=== PATIENT | female | born 1945 | race Hispanic/Latino ===

== ENCOUNTER 2017-01-08 10:24 | Outpatient (CLI) | payer MEDICARE ==
--- NOTE | 2017-01-08 15:07 | Mammography Report ---
BILATERAL DIGITAL SCREENING MAMMOGRAM with CAD: 01/08/17 10:24:00 CLINICAL: Routine screening. COMPARISON:03/10/15 FINDINGS: The breasts are predominantly fatty with bilateral retroareolar fibroglandular densities.An irregular right retroareolar mass measures approximately 1.8 cm and requires additional evaluation with ultrasound.No suspicious calcifications. The left breast is negative. IMPRESSION: A suspicious right retroareolar breast mass requiring further workup. BI-RADS CATEGORY: 0 -- Additional Imaging Evaluation Required RECOMMENDATION: Right breast ultrasound. I reviewed the examination with Dr. Ennis and she is going to perform a right breast ultrasound and possibly a right ultrasound-guided needle biopsy on this same day. ACR BI-RADS MAMMOGRAPHIC CODES: 0 = Needs additional imaging evaluation; 1 = Negative; 2 = Benign; 3 = Probably benign; 4 = Suspicious; 5 = Malignant; 6 = Known biopsy-proven malignancy COMMENT: 1. Dense breast tissue, i.e., adenosis, fibrocystic changes, etc., may obscure an underlying neoplasm. 2. Approximately 10% of cancers are not detected with mammography. 3. A negative mammography report should not delay biopsy if a clinically suspicious mass is present. COMMENT: Patient follow-up letters are generated via our [employer] application.
== END 2017-01-08 10:25 | disposition home or self-care (01) ==
LOC: SPVWC 10:24
PROVIDERS: ATTEND Surgery
DX: Z12.31 Encounter for screening mammogram for malignant neoplasm of breast (principal)
CPT/HCPCS: 77067; G0202

== ENCOUNTER 2017-01-09 15:03 | Outpatient (CLI) | payer MEDICARE | END 2017-01-09 15:04 | disposition home or self-care (01) | LOC: LABHHL 15:03 → LAB 15:03 | PROVIDERS: ATTEND Surgery | DX: N63 Unspecified lump in breast (principal) | CPT/HCPCS: 88305; 88361 ==

== ENCOUNTER 2017-01-23 13:10 | Outpatient (CLI) | payer MEDICARE ==
--- NOTE | 2017-01-28 10:09 | Magnetic Resonance Report ---
BILATERAL BREAST MRI WITHOUT AND WITH CONTRAST: 01/23/17 13:10:00 CLINICAL: Newly diagnosed right breast cancer. Status post needle core biopsy of the right breast on 01/09/17 with pathologic diagnosis of invasive ductal carcinoma, [place] grade 3/3. ER/MA negative and her 2 negative. COMPARISON:01/08/17 screening mammogram. TECHNIQUE: Axial 1.0-mm T1 without, axial high resolution 2.0-mm T2 and axial 1.0-mm dynamic Vibrant high-resolution postcontrast T1 fat saturation sequences on a 1.5 Anne-Marie magnet. The examination was performed with an 8 channel dedicated Sentinelle breast coil. Post processing with CAD and subtraction was performed on an [employer] workstation. 20 cc of Multihance was injected without incident for the contrast portion of the exam. Consent was obtained prior to the administration of the contrast. FINDINGS: Right: Minimal background parenchymal enhancement. An irregular enhancing mass at 7 o'clock 3.2 cm from the nipple corresponds to the known cancer. It measures 18.6 x 14.7 x 14.2 mm and demonstrates heterogeneous enhancement with mixed kinetics, 162% peak enhancement and 6% type III washout. A second highly suspicious mass is located at 7 o'clock 5.3 cm from the nipple and measures 24.7 x 10.7 x 10.5 mm. It demonstrates heterogeneous enhancement with mixed kinetics, 201% peak enhancement, 69% type I persistent and 31% type II plateau and 0% type III washout waveforms. No other mass or suspicious enhancement of the right breast. 2 upper-outer intramammary lymph nodes with benign morphology. No suspicious right axillary or right internal mammary lymph nodes. Left: Minimal background parenchymal enhancement. No mass or suspicious enhancement of the left breast. No suspicious left axillary or left internal mammary lymph nodes. IMPRESSION: Known right breast cancer and one additional highly suspicious mass of the right breast. No suspicious lymph nodes. Negative left breast. RIGHT BI-RADS 6 -- Known Cancer LEFT BI-RADS 1 -- Negative
== END 2017-01-23 13:11 | disposition home or self-care (01) ==
LOC: SPVIMAG 13:10
PROVIDERS: ATTEND Surgery
DX: C50.511 Malignant neoplasm of lower-outer quadrant of right female breast (principal)
CPT/HCPCS: 0159T; A9577; C8908; 77059

== ENCOUNTER 2017-02-05 06:32 | Observation (INO) | payer MEDICARE ==
[~2017-02-05 06:32] MED LIST: BACITRACIN IR ONE; NACL P/F VIAL (10 ML) IV ONE; WATER FOR IRRIG STERILE IR ONE
[2017-02-05] MEDS ORDERED: XYLOCAINE MPF 2% ONE (06:36)
[2017-02-05] MEDS ORDERED: DIPRIVAN 10 MG/ML IV ONE (06:44)
[2017-02-05] MEDS ORDERED: ZEMURON IV ONE (06:44)
[2017-02-05] MEDS ORDERED: DILAUDID ONE (06:44)
[2017-02-05] MEDS ORDERED: NEOSTIGMINE ONE (06:44)
[2017-02-05] MEDS ORDERED: ROBINUL ONE (06:44)
[2017-02-05] MEDS ORDERED: NACL BACTERIOSTATIC INFILTRATI ONE (06:50)
[2017-02-05] MEDS ORDERED: ANCEF/STERILE WATER 2 GM/20 ML IV NR (07:00)
--- NOTE | 2017-02-05 07:07 | Anesthesia Day of Surgery ---
Anesthesia Day of Surgery - Day of Surgery Patient Examined: Yes Patient H&P Reviewed: Yes Patient is NPO: Yes Cardiac Clearance: Yes (primary care clearance)
--- NOTE | 2017-02-05 07:09 | Anesthesia Consultation ---
Anesthesia Consult and Med Hx - Airway Anesthetic Teeth Evaluation: Good, Caps ROM Head & Neck: Adequate Mental/Hyoid Distance: Adequate Mallampati Class: Class II Intubation Access Assessment: Probably Good - Pulmonary Exam CTA: Yes - Cardiac Exam Cardiac Exam: RRR - Pre-Operative Health Status ASA Pre-Surgery Classification: ASA2 Proposed Anesthetic Plan: General Nerve Block: PEC 2 BLOCK - Pulmonary Hx Smoking: No Hx Sleep Apnea: No - Central Nervous System Hx Psychiatric Problems: No - Gastrointestinal Hx Gastroesophageal Reflux Disease: Yes (controlled on meds) - Other Systems Hx Cancer: Yes (RIGHT BREAST, DX: 12/2016) - Additional Comments Anesthesia Medical History Comments: Pt NPO after MN. No prior anesthesia complications. Agrees to PEC2 block.
[2017-02-05] MEDS ORDERED: DECADRON ONE (07:54)
[2017-02-05] MEDS ORDERED: PEPCID PO NR (08:00)
[2017-02-05] MEDS ORDERED: TRANSDERM-SCOP TD NR (08:00)
[2017-02-05] MEDS ORDERED: NEURONTIN PO SCH (08:00)
[2017-02-05] MEDS ORDERED: VERSED IV NR (08:00)
[2017-02-05] MEDS ORDERED: NACL 0.9% 1000 ML 1,000 ML IV SCH (08:00)
[2017-02-05] MEDS ORDERED: BACITRACIN ONE ×2 (08:02→09:36)
[2017-02-05] MEDS ORDERED: NACL P/F VIAL (10 ML) 10 ML ONE ×3 (08:03→09:50)
--- NOTE | 2017-02-05 09:04 | Admit Criteria Form ---
Admission Criteria Documentation: AMBULATORY SURGERY EXCEPTION CRITERIA Ambulatory Surgery Exception Criteria ( Place 'X' for any and all applicable criteria): Surgery or procedure performed on ambulatory basis may require inpatient stay for[A] ANY ONE of the following(1)(2)(3)(4)(5)(6)(7)(8)(9): [X] I. A preoperative situation, condition, or finding that warrants inpatient stay as indicated by ANY ONE of the following: [X] a) Inpatient care needed because of severity of a disease or condition rather than the surgery (eg, severe cardiac or respiratory disease, severe infection) (15) (16 ) (17) (18) [] b) Emergent procedure (eg, angioplasty for acute ischemia)(19) [] c) Complex surgical approach or situation as indicated by ANY ONE of the following(3): [] i) Open approach needed instead of usual endoscopic, transcatheter, or other less invasive procedure [] ii) Difficult approach because of previous operation [] iii) Airway monitoring required after open neck procedures(20)(21) [] iv) Large mass requiring unusually extensive dissection [] v) Additional complicating feature requiring inpatient care (eg, drain management)(22(23): [] d) Major surgery in a pt with high anesthetic risk as indicated by ANY ONE of the following (2)(3)(5)(7)(8): [] i) ASA risk class III or higher (severe systemic disease impairing function) [D] [] ii) Advanced age (eg, older than 85 years)(14)(24) [] iii) Symptomatic heart failure(25) [] iv) Symptomatic asthma or COPD(8)(21) [] v) Morbid obesity with hemodynamic or respiratory problems(20)( 21)(26)(27) [] vi) Obstructive sleep apnea(20)(21) [] vii) Former premature infants who are younger than 60 weeks [] viii) High risk for severe postoperative abnormalities (eg, severe postoperative hypocalcemia after parathyroidectomy for severe hyperparathyroidism)(27)( 28) [] ix) Unstable angina(25) [] e) Drug-related risk requiring inpatient stay as indicated by ANY ONE of the following(5)(10)(14)(32)(33) [] i) Procedure requires discontinuing drugs or other therapy (eg , antiarrhythmic medication, antiseizure medication), which necessitates inpatient observation or treatment.(18)(31) [] ii) Major surgery and high risk drug use as indicated by ANY ONE of the following: [] 1) Active abuse of cocaine or similar drug [] 2) Monoamine oxidase inhibitor use [] 3) Other drug identified as posing risk [] f) Inadequate outpatient care situation as indicated by ANY ONE of the following(5)(10)(14)(32)(33) [] i) Patient lives remote from medical facility and procedure has urgent complication potential, and temporary nearby residence cannot be arranged [] ii) Patient will have postprocedure incapacitation and inadequate assistance at home, or alternative level of care cannot be arranged. [] iii) Patient will have long general anesthesia or procedure side effect resolution time, and competent person to stay with patient on first postoperative night at home or alternative level of care cannot be arranged. []iv) Other inadequate outpatient situation that cannot be handled by other means [] II. A perioperative event, condition, or finding that warrants inpatient stay as indicated by ANY ONE of the following (1)(2)(3): [] a) Inadequate physiologic recovery: cardiovascular, respiratory, or hemodynamic status not normal or near preoperative baseline(18) [] b) Hemodynamic instability [] c) Patient not alert with near normal or baseline mental status [] d) Temperature not normal or as expected and not appropriate for outpatient treatment of condition [] e) Ambulatory or appropriate activity level status not yet achieved post procedure [E](34)(35)(36) [] f) Operative site not appropriate (eg, unexpected or excessive drainage or bleeding) [] g) Postoperative effects not resolved or adequately managed (eg, significant pain or vomiting not appropriate for outpatient or next level of care)(10)(12) [] h) Complicating features requiring inpatient care as indicated by ANY ONE of the following(37): [] i) Severe complications of procedure (eg, bowel injury, airway compromise, vascular injury,severe hemorrhage) [] ii) Extensive (eg, dissection far beyond usual scope of procedure ) or prolonged (eg, 120 minutes beyond usual) surgery needed requiring inpatient postoperative care [] iii) Conversion to an open or complex procedure that requires inpatient care (eg, open vs laparoscopic cholecystectomy, abdominal vs vaginal hysterectomy)(38) [] iv) Comorbid condition or test result identified during or post procedure that requires inpatient care (7) [] v) Malignant hyperthermia(30) [] vi) Other complicating feature requiring inpatient care(22)(23) Inpatient stay may be needed until ALL of the following are present (1)(2)(3)(4) (5)(6)(10)(14)(33)(40): []a) Physiologic recovery: cardiovascular, respiratory, and hemodynamic status normal or near preoperative baseline []b) Hemodynamic stability []c) Patient alert, with near normal or baseline mental status []d) Temperature appropriate: patient afebrile or temperature appropriate for outpt treatment of condition []e) Activity level appropriate: ambulatory or appropriate activity level post procedure []f) Operative site appropriate as indicated by ALL of the following: []i) Site dry or with expected drainage []ii) Any blood noted is as expected for procedure. []g) Postoperative effects resolved or managed as indicated by ALL of the following: []i) Pain management appropriate for outpatient (or next level of) care(10) []ii) Minimal nausea and vomiting: if present, successfully treated with oral medication(12) []iii) Headache, dizziness, or drowsiness (if present) are mild. []h) Voiding status acceptable as indicated by ANY ONE of the following: []i) Voiding spontaneously []ii) No voiding but instructions given for follow-up in 6 to 8 hours []iii) Urinary catheter in place, and instructions given for follow-up []i) Complicating features requiring inpatient care manageable at a lower level of care(37) []j) Comorbid conditions manageable at a lower level of care(37) The original [employer] content created by [employer] has been revised. The portions of the content which have been revised are identified through the use of italic text or in bold, and [employer] has neither reviewed nor approved the modified material. All other unmodified content is copyright [employer]. Please see references footnoted in the original [employer] edition 2016 Admission Criteria Met: Yes
[2017-02-05] MEDS ORDERED: NACL P/F VIAL (10 ML) 0 ML ONE (09:39)
[2017-02-05] MEDS ORDERED: ePHEDrine SULFATE ONE (09:50)
[2017-02-05] MEDS ORDERED: WATER FOR IRRIG STERILE IR ONE (09:56)
[2017-02-05] MEDS ORDERED: GARAMYCIN ONE (09:57)
[2017-02-05] MEDS ORDERED: ANCEF ONE (09:57)
[2017-02-05] MEDS ORDERED: PERCOCET 5/325 PO PRN (10:36)
[2017-02-05] MEDS ORDERED: REGLAN PO PRN (10:36)
[2017-02-05] MEDS ORDERED: TYLENOL PO PRN (10:36)
[2017-02-05] MEDS ORDERED: BENADRYL PO PRN (10:36)
[2017-02-05] MEDS ORDERED: SODIUM CHLORIDE FLUSH SYRINGE 10 ML IV PRN (10:36)
[2017-02-05] MEDS ORDERED: ZOFRAN IV PRN (10:36)
[2017-02-05] MEDS ORDERED: MORPHINE IV PRN (10:39)
--- NOTE | 2017-02-05 10:41 | Post Operative Note ---
Pre-op diagnosis: right breast cancer Post-op diagnosis: same Findings: right sided breast cancer Procedure: right breast reconstruction with tissue slasher tender and aceullar dermal matrix Anesthesia: GETA Surgeon: MILY LLOYD Estimated blood loss: minimal Pathology: none Condition: stable Disposition: PACU
[2017-02-05] MEDS ORDERED: BACITRACIN IR ONE (10:58)
[2017-02-05] MEDS ORDERED: NACL P/F VIAL (10 ML) IV ONE (10:58)
[2017-02-05] MEDS ORDERED: ANCEF IV ONE (10:58)
[2017-02-05] MEDS ORDERED: NACL 0.9% IR ONE (10:58)
[2017-02-05] MEDS ORDERED: LACTATED RINGERS 1,000 ML IV SCH (11:00)
--- NOTE | 2017-02-05 11:11 | Operative Report ---
Operative Report Operative Report: Date of procedure: 02/05/2017 Pre-operative diagnosis: Right breast cancer of the subareolar Post-operative diagnosis: Same Procedure name(s): Right total mastectomy with sentinel lymph node biopsy Surgeon: Wandy Ennis M.D. Anesthesia: Gen. Findings: Known right breast cancer of the 7 o'clock position of the subareolar. 2 sentinel lymph nodes identified with negative findings for malignancy on frozen. Right total mastectomy. Complications: None Disposition: Plastic continue with right tissue senior analyst developer placement Indications for operative procedure: This is a 71-year-old lady with newly diagnosed right breast cancer of the 7 o'clock position of the subareolar , IDCA [id number] triple negative. Recommendations are for chemotherapy as well as surgical intervention with right total mastectomy with sentinel lymph node staging. Patient wished to proceed with surgery first and has declined chemotherapy at this time. The above procedure was explained to the patient in detail and she wished to proceed. Procedure in Detail:Anesthesia placed right pectoral muscle block. The patient was taken to the operating room. Gen. anesthesia was administered. Sheth was placed. Nipple was injected with radioisotope. The right breast and axilla was prepped and draped in the normal sterile operative fashion. Gamma probe was inserted into the axilla to identify the area of concern. Skin incision was made with a typical mastectomy markings with 10 blade knife with dissection taken down to the subcutaneous tissues with the aid of the Bovie cautery. First began with the raising of superior flap to the level of the clavicle and posteriorly to the pectoralis muscle followed by raising of the medial flap to the level of the sternum posterior to the pectoralis muscle followed by raising of the lateral flap to the level latissimus dorsi muscle and posteriorly to the pectoralis muscle. Gamma probe was inserted into the axilla with identification of sentinel lymph nodes. 2 sentinel lymph nodes were identified and dissected free with frozen section by pathology performed and negative for malignancy. Then continued with the raising of the inferior flap to the level of the inframammary fold and posterior to the pectoralis muscle. Mastectomy was removed from the pectoralis muscle without incident and sent to pathology. This then concluded my procedure. Dr. Palacio then continued with placement of right tissue senior analyst developer placement with mesh.
[2017-02-05] MEDS ORDERED: NACL 0.9% 1000 ML 1,000 ML ONE (12:31)
--- NOTE | 2017-02-05 12:50 | Post Anesthesia Evaluation ---
- Post Anesthesia Evaluation Patient Participated: Yes Airway Patent: Yes Stable Respiratory Function: Yes Nausea/Vomiting: No Temp > 96.8F: Yes Pain Manageable: Yes Adequeate Hydration: Yes Anesthesia Complications: No
[2017-02-05] MEDS: ANCEF/NS 1 GM/50 ML 1 GM/50 ML BAG IV SCH ×2 (15:15→22:06)
--- NOTE | 2017-02-05 20:23 | Operative Report ---
PREOPERATIVE DIAGNOSIS: Right-sided breast cancer. POSTOPERATIVE DIAGNOSIS: Right-sided breast cancer. PROCEDURES: 1. Immediate right breast reconstruction using tissue weight engineer, CPT code 33532-D. 2. Implantation of biological mesh, right breast for reconstruction, CPT code 32858-Y. SURGEON: Gabriele Palacio MD. STORAGE ADMINISTRATOR: first sharla Dos Santos. ANESTHESIA: General. OPERATIVE INDICATIONS: A 71-year-old female who presented to my clinic for options for breast reconstruction. She was undergoing right-sided mastectomy. Dr. Ennis and elected to proceed with an implant based reconstruction. Risks and benefits of the surgery were discussed with the patient. She agreed. OPERATIVE DETAILS: After informed consent was obtained, the patient was brought to the operating room and placed supine on the operating table. Preoperative antibiotics and general anesthesia were administered. The patient was prepped and draped in the usual sterile fashion. A time-out was called verifying the name of the patient, operation being performed, and the side and site of the operation. Dr. Ennis initially performed a right mastectomy and sentinel lymph node biopsy. It was then asked to enter the room and did perform the reconstruction. I began by assessing the defect and elevating the pectoralis major muscle and dividing it inferiorly to create a subpectoral pocket. We took a MENTOR ARTOURA high-profile 375 mL tissue weight engineer, serial #[id number], soaked in antibiotic irrigation and Betadine, and placed in the subpectoral pocket, and secured in all three sides using 2-0 PDS sutures. I then took a piece of FlexHD (acellular dermal matrix) medium perforated 11 x 20 cm, serial # [id number], and secured that to the new inframammary fold using 2-0 Vicryl interrupted sutures and then out laterally. It was then cut to the appropriate size and sutured to the pectoralis major muscle using a running 2-0 Vicryl suture. A 100 mL of air was insufflated into the weight engineer. Everything was copiously irrigated again with Betadine and triple antibiotic irrigation. Hemostasis was then achieved. Two 15-Japanese Triston drains were placed, one in the prepectoral pocket and one in the maxillary defect with sentinel lymph node biopsy. This was secured in place with 3-0 nylon sutures. Suction irrigation was performed and then hemostasis was achieved. The skin was closed using interrupted deep dermal 3-0 Monocryl sutures and then a running 4-0 Monocryl subcuticular suture. Dermabond was applied. The patient had a sterile dressing applied and was placed into a breast binder. The patient tolerated the procedure well and was awakened from general anesthesia, transferred to PACU in stable condition. ESTIMATED BLOOD LOSS: Minimal. COMPLICATIONS: None. SPECIMENS: None. IMPLANTS: MENTOR ARTOURA high-profile 375 mL implant, serial #[id number], and a FlexHD perforated medium-sized, serial #[id number]. COMPLICATIONS: None. FINDINGS: Right mastectomy defect. JOB# [id number] YOLANDA/SEBASTIAN HAMM
[2017-02-05] MEDS: COLACE PO SCH (22:10)
[2017-02-06] MEDS: ANCEF/NS 1 GM/50 ML 1 GM/50 ML BAG IV SCH (05:23)
--- NOTE | 2017-02-06 06:15 | Discharge Summary ---
Providers - Providers Date of Admission: 02/05/17 10:36 Date of discharge: 02/06/17 Attending physician: MILY LLOYD 02/05/17 06:49 Consult to Anesthesiology [CONS] Routine Consulting Provider: LEIGHTON ANESTHESIA MITZI MCGRAW Reason For Exam: SURGERY TODAY Primary care physician: YUNG LEWIS Hospitalization Reason for admission: observation Condition: Good Procedures: Right mastectomy, SLNBx, breast recon with tissue wood setter Hospital course: Pain controlled, ambulating, drain teaching performed and discharged the following morning without issue Disposition: DISCHARGED TO HOME OR SELFCARE Core Measure Documentation - Palliative Care Palliative Care/ Comfort Measures: Not Applicable - Core Measures Any of the following diagnoses?: none Exam - Physical Exam Narrative exam: NAD, AAOx3. RRR Right breast flat with no hematoma. Drains are slightly bloody but turning serosang. No mastectomy skin necrosis - Constitutional Vitals: Temp Pulse Resp BP Pulse Ox 97.9 F 62 18 104/57 96 02/06/17 00:00 02/06/17 00:00 02/06/17 00:00 02/06/17 00:00 02/05/17 12:45 Plan Activity: advance as tolerated, no driving until cleared by PCP Weight Bearing Status: Full Weight Bearing Diet: regular Wound: keep clean and dry, drain care as instructed Special Instructions: no heavy lifting Follow up with: YUNG LEWIS ANP [Primary Care Provider] - 7 Days MILY LLOYD MD [Staff Physician] - 14 Days
--- NOTE | 2017-02-06 09:04 | Progress Note ---
Subjective Date of service: 02/06/17 Interval history: 1st POD after breast reconstruction surgery Patient is in the bed, comfortable. Pain is well controlled with pain meds. Ambulated well. No nausea or vomiting. No anesthesia complication Objective - Constitutional Vitals: Vital Signs - 12hr 02/06/17 02/06/17 00:00 04:15 Temperature 97.9 F 98.0 F Pulse Rate [ 62 68 Left From Monitor] Respiratory 18 18 Rate Blood Pressure 104/57 97/59 [Left Arm]
[2017-02-06] MEDS: COLACE PO SCH (10:00)
[2017-02-06 13:40] VITALS: BP 121/63
== END 2017-02-06 12:50 | disposition home or self-care (01) ==
LOC: OR 06:32 → OB 10:36
PROVIDERS: ADMIT Plastic Surgery; ATTEND Plastic Surgery
DX: C50.011 Malignant neoplasm of nipple and areola, right female breast (principal); N64.53 Retraction of nipple; N64.51 Induration of breast; E78.2 Mixed hyperlipidemia; K21.9 Gastro-esophageal reflux disease without esophagitis; E55.9 Vitamin D deficiency, unspecified; Z68.29 Body mass index [BMI] 29.0-29.9, adult; Z90.49 Acquired absence of other specified parts of digestive tract; Z98.51 Tubal ligation status; Z82.49 Family history of ischemic heart disease and other diseases of the circulatory system
CPT/HCPCS: 15777; 19303; 19357; 64450; 78800; 88307; 88309; 88331; 88333; 88341; 88342; 88361; 96365; 96375; A9541; C1781; C1789; G0378; J0690; J1100; J1170; J1580; J2250; J2704; J2710; J7030; Q4128

== ENCOUNTER 2017-12-02 12:59 | Outpatient (CLI) | payer MEDICARE ==
--- NOTE | 2017-12-02 13:32 | Mammography Report ---
LEFT DIGITAL DIAGNOSTIC MAMMOGRAM with CAD: 12/02/17 12:59:00 CLINICAL: History of right breast cancer status post mastectomy. COMPARISON:01/08/17 FINDINGS: The breast is mostly fatty.No mass, architectural distortion or suspicious calcifications. IMPRESSION: No mammographic evidence of malignancy. BI-RADS CATEGORY: 1 - - Negative RECOMMENDATION: Routine mammographic screening in one year. ACR BI-RADS MAMMOGRAPHIC CODES: 0 = Needs additional imaging evaluation; 1 = Negative; 2 = Benign; 3 = Probably benign; 4 = Suspicious; 5 = Malignant; 6 = Known biopsy-proven malignancy COMMENT: 1. Dense breast tissue, i.e., adenosis, fibrocystic changes, etc., may obscure an underlying neoplasm. 2. Approximately 10% of cancers are not detected with mammography. 3. A negative mammography report should not delay biopsy if a clinically suspicious mass is present. COMMENT: Patient follow-up letters are generated by our [employer] application.
== END 2017-12-02 13:00 | disposition home or self-care (01) ==
LOC: SPVWC 12:59
PROVIDERS: ATTEND Surgery
DX: R92.8 Other abnormal and inconclusive findings on diagnostic imaging of breast (principal); Z85.3 Personal history of malignant neoplasm of breast; Z90.11 Acquired absence of right breast and nipple

== ENCOUNTER 2018-12-01 09:52 | Outpatient (CLI) | payer MEDICARE ==
--- NOTE | 2018-12-01 10:34 | Mammography Report ---
LEFT DIGITAL DIAGNOSTIC MAMMOGRAM WITH CAD: 12/01/18 09:52:00 CLINICAL: Breast cancer survivor status post right mastectomy. COMPARISON:12/02/17 FINDINGS: Breast is mostly fatty.No mass, architectural distortion or suspicious calcifications. IMPRESSION: No mammographic evidence of malignancy. BI-RADS CATEGORY: 1 -- Negative RECOMMENDATION: Routine screening in one year. ACR BI-RADS MAMMOGRAPHIC CODES: 0 = Needs additional imaging evaluation; 1 = Negative; 2 = Benign; 3 = Probably benign; 4 = Suspicious; 5 = Malignant; 6 = Known biopsy-proven malignancy COMMENT: 1. Dense breast tissue, i.e., adenosis, fibrocystic changes, etc., may obscure an underlying neoplasm. 2. Approximately 10% of cancers are not detected with mammography. 3. A negative mammography report should not delay biopsy if a clinically suspicious mass is present. COMMENT: Patient follow-up letters are generated via our [employer] application.
== END 2018-12-01 09:53 | disposition home or self-care (01) ==
LOC: SPVWC 09:52
PROVIDERS: ATTEND Surgery
DX: R92.8 Other abnormal and inconclusive findings on diagnostic imaging of breast (principal); K21.9 Gastro-esophageal reflux disease without esophagitis; M19.90 Unspecified osteoarthritis, unspecified site; Z85.3 Personal history of malignant neoplasm of breast; Z90.11 Acquired absence of right breast and nipple

== ENCOUNTER 2019-05-10 13:23 | Outpatient (CLI) | payer MEDICARE ==
--- NOTE | 2019-05-10 14:58 | Vascular Lab Report ---
Duplex venous Doppler examination of the left upper extremity with spectral analysis INDICATION: History of left upper hemithorax thrombosis last month without anticoagulant therapy, sta tus post left upper extremity port removal last month, history of breast cancer The deep venous system shows good flow, compressibility, and augmentation with no evidence of deep ve nous thrombosis. A small amount of superficial venous thrombosis is seen in the cephalic vein in the upper to mid arm region. IMPRESSION: 1. No evidence of deep venous thrombosis 2. Small amount of superficial venous thrombosis, possibly that reported in the history Signer Name: Yanick Flores MD Signed: 05/10/2019 2:54 PM Workstation Name: [id number]
== END 2019-05-10 13:24 | disposition home or self-care (01) ==
LOC: VAS 13:23
PROVIDERS: ATTEND Internal Medicine Hematology & Oncology
DX: I74.2 Embolism and thrombosis of arteries of the upper extremities (principal); C50.111 Malignant neoplasm of central portion of right female breast; I10 Essential (primary) hypertension; K21.9 Gastro-esophageal reflux disease without esophagitis; Z90.89 Acquired absence of other organs

== ENCOUNTER 2019-12-07 10:15 | Outpatient (CLI) | payer MEDICARE ==
--- NOTE | 2019-12-07 11:10 | Mammography Report ---
DIGITAL SCREENING MAMMOGRAM WITH CAD, 12/07/2019 INDICATION: Routine screening mammography. Breast cancer survivor status post right mastectomy. TECHNIQUE: Digital bilateral 2D mammography was obtained in the craniocaudal and mediolateral obliq ue projections. This examination was interpreted with the benefit of Computer-Aided Detection analysi s. COMPARISON: 12/01/2018 FINDINGS: Breast Density: The breast is heterogeneously dense which may obscure small masses. There is no evidence of dominant mass, suspicious calcifications or architectural distortion in the l eft breast. IMPRESSION: No mammographic evidence of malignancy. Follow up recommendation: Routine yearly BI-RADS Category 1: Negative. A "normal" or negative report should not discourage follow up or biopsy of a clinically significant f inding. A written summary of these findings will be mailed to the patient. The patient will be entered into a mammography reporting system which will generate a reminder letter for the patient's next appointmen t at the appropriate interval. The [employer] recommends yearly mammograms starting at age 40 and continuing as l asher as a woman is in good health. Breast MRI is recommended for women with an approximate 20-25% or greater lifetime risk of breast cancer, including women with a strong family history of breast or ova jim cancer or who have been treated for Hodgkin's disease. Signer Name: Zeus Goodman MD Signed: 12/07/2019 11:05 AM Workstation Name: [id number]
== END 2019-12-07 10:16 | disposition home or self-care (01) ==
LOC: SPVWC 10:15
PROVIDERS: ATTEND Surgery
DX: Z12.31 Encounter for screening mammogram for malignant neoplasm of breast (principal)

== ENCOUNTER 2020-12-12 13:37 | Outpatient (CLI) | payer MEDICARE ==
--- NOTE | 2020-12-13 08:06 | Mammography Report ---
BILATERAL DIGITAL SCREENING MAMMOGRAM WITH CAD HISTORY: Screening mammogram. Patient status post right breast mastectomy. TECHNIQUE: Routine digital mammographic imaging performed. This examination was interpreted with lisette darnell benefit of Computer-aided Detection analysis. COMPARISON: 12/05/2019, 12/01/2018, 12/02/2017. FINDINGS: Breast Density: Digital CC and MLO views demonstrate no mammographic evidence of malignancy. IMPRESSION: No mammographic evidence of malignancy. If the clinical examination remains stable, recommend bilate ral mammogram in approximately one year. BIRADS 1: Negative. FURTHER INFORMATION: According to the [employer], yearly mammograms are recommend ed starting at age 40 and continuing as long as a woman is in good health. Clinical Breast Exams shou ld be part of a periodic health exam-about every 3 years for women in their 20s and 30s and every yea r for women 40 and over. Breast self exam is an option for women starting in their 20s. Any breast ch carolyn noted on a breast self exam should be reported promptly to the patient's healthcare provider. Br east MRI is recommended for women with an approximately 20-25% or greater lifetime risk of breast can cer, including women with a strong family history of breast or ovarian cancer and women who have been treated for Hodgkin's disease. A negative Mammography report should not discourage follow up or biopsy of a clinically significant f inding and/or abnormality. Dense breast tissue may obscure small neoplasms. The patient will be entered into a reminder system with a target due date for the next screening mamm ogram. Signer Name: Noe Kaminski MD Signed: 12/13/2020 8:02 AM Workstation Name: [id number]
== END 2020-12-12 13:38 | disposition home or self-care (01) ==
LOC: SPVWC 13:37
PROVIDERS: ATTEND Surgery
DX: Z12.31 Encounter for screening mammogram for malignant neoplasm of breast (principal)